=== PATIENT | female | born 1990 | race Caucasian/White ===

== ENCOUNTER 2020-03-29 17:22 | Emergency (ER) | payer MEDICAID ==
[~2020-03-29] VITALS: Ht 154.9 cm; Wt 89.8 kg
[2020-03-29 17:31] VITALS: Ht 154.9 cm; Wt 89.8 kg
[2020-03-29 18:57] VITALS: BP 108/70
== END 2020-03-29 18:57 | disposition home or self-care (01) ==
LOC: ED 17:22
DX: S62.605A Fracture of unspecified phalanx of left ring finger, initial encounter for closed fracture (principal); S60.021A Contusion of right index finger without damage to nail, initial encounter; Y04.8XXA Assault by other bodily force, initial encounter; Y93.89 Activity, other specified; Y92.89 Other specified places as the place of occurrence of the external cause; Y99.8 Other external cause status
CPT/HCPCS: 90715